=== PATIENT | male | born 1960 | race Two or more races ===

== ENCOUNTER 2022-12-09 11:09 | Inpatient (IN) | payer MEDICAID, OTHER ==
[~2022-12-09] VITALS: Ht 165.1 cm; Wt 77.3 kg
[2022-12-09] MEDS ORDERED: NITROGLYCERIN 0.4 MG SL TAB SL ONE (11:15)
[2022-12-09] MEDS ORDERED: ASPirin 325 MG TAB PO ONE (11:15)
[2022-12-09 12:13] LABS: Basophils # (auto) 0 10 ^3/uL (0-0.2); Basophils % (auto) 0.5 % (0.0-2.0); Eosinophils # (auto) 0.1 10 ^3/uL (0-0.8); Eosinophils % (auto) 1.7 % (0.0-7.0); Hematocrit 39.7 % (41.0-53.0); Hemoglobin 12.4 g/dL (13.5-17.5); Lymphocytes # (auto) 1.5 10 ^3/uL (0.4-5.4); Lymphocytes % (auto) 28.5 % (10.0-50.0); Mean Corpuscular Hgb Conc. 31.2 g/dL (32.0-36.0); Mean Corpuscular Volume 86.8 fL (80.0-100.0); Monocytes # (auto) 0.6 10 ^3/uL (0-1.3); Monocytes % (auto) 11.1 % (0.0-12.0); Neutrophils % (auto) 58.2 % (37.0-80.0); Red Blood Cells 4.58 10^6/uL (4.5-5.90); Red Cell Distribution Width 15.9 % (11.8-14.3); White Blood Cell 5.2 10^3/uL (4.4-10.8)
[2022-12-09 12:34] LABS: INR 0.95 (0.9-1.15); Partial Thromboplastin Time 27.2 sec (24.6-33.4)
[2022-12-09 14:28] LABS: Albumin 3.7 g/dL (3.4-5.0); BUN/Creatinine Ratio 16.8; Bilirubin, Total 0.7 mg/dL (0.2-1.0); Calcium 8.4 mg/dL (8.5-10.1); Potassium 4.7 mmol/L (3.5-5.1); Total Protein 6.7 g/dL (6.4-8.2)
[2022-12-09] MEDS ORDERED: DEXTROSE (50%) 50ML SYRG IV PRN (15:30)
[2022-12-09] MEDS ORDERED: NITROGLYCERIN 0.4 MG SL TAB SL PRN (15:30)
[2022-12-09] MEDS ORDERED: ENOXAPARIN SOD 30 MG/0.3 ML SYRINGE IV ONE (15:30)
[2022-12-09] MEDS ORDERED: HYDROcodone-ACET 10/325MG TAB PO ONE (16:15)
[2022-12-09] MEDS: InsuLIN REG 1unit/0.01ml Soln (100units/ml) SC SCH ×2 (17:46→23:20)
[2022-12-09] MEDS: ACCU-CHEK COMFORT CURVE STRIP VI SCH ×2 (17:47→23:15)
[2022-12-09] MEDS: ONDANSETRON HCL 4 MG/2 ML VIAL IV PRN (20:42)
[2022-12-09] MEDS: MORPHINE SULFATE 4 MG/ML SYR/VIAL IV PRN (20:45)
[2022-12-09] MEDS: METOPROLOL TARTRATE 25 MG TAB PO SCH (23:20)
[2022-12-09] MEDS: ATORVASTATIN 20 MG TAB PO SCH (23:21)
[2022-12-10 02:06] LABS: Urine Bacteria NONE SEEN /hpf (None Seen); Urine Blood Negative /uL (Negative); Urine Hyaline Cast FEW /lpf (0 - 2); Urine Specific Gravity 1.025 (1.001-1.035); Urine WBC <1 /hpf (0 - 3)
[2022-12-10 06:12] LABS: Basophils # (auto) 0 10 ^3/uL (0-0.2); Basophils % (auto) 0.5 % (0.0-2.0); Eosinophils # (auto) 0.1 10 ^3/uL (0-0.8); Eosinophils % (auto) 2.3 % (0.0-7.0); Hematocrit 38.1 % (41.0-53.0); Hemoglobin 12.1 g/dL (13.5-17.5); Lymphocytes # (auto) 1.4 10 ^3/uL (0.4-5.4); Lymphocytes % (auto) 34.9 % (10.0-50.0); Mean Corpuscular Hemoglobin 27.5 pg (28.0-32.0); Mean Corpuscular Hgb Conc. 31.8 g/dL (32.0-36.0); Mean Corpuscular Volume 86.4 fL (80.0-100.0); Monocytes # (auto) 0.5 10 ^3/uL (0-1.3); Monocytes % (auto) 13.2 % (0.0-12.0); Neutrophils # (auto) 1.9 10 ^3/uL (1.6-8.6); Neutrophils % (auto) 49.1 % (37.0-80.0); Nucleated Red Blood Cells % 0.1 %; Red Blood Cells 4.41 10^6/uL (4.5-5.90); Red Cell Distribution Width 16.1 % (11.8-14.3); White Blood Cell 3.9 10^3/uL (4.4-10.8)
[2022-12-10 06:29] LABS: Albumin 3.3 g/dL (3.4-5.0); Potassium 4.2 mmol/L (3.5-5.1)
[2022-12-10 06:37] LABS: BUN/Creatinine Ratio 17.1; Bilirubin, Total 0.8 mg/dL (0.2-1.0); Calcium 8.2 mg/dL (8.5-10.1); Total Protein 6.2 g/dL (6.4-8.2)
[2022-12-10] MEDS: ACCU-CHEK COMFORT CURVE STRIP VI SCH ×4 (06:56→22:33)
[2022-12-10] MEDS: InsuLIN REG 1unit/0.01ml Soln (100units/ml) SC SCH ×4 (06:58→22:00)
[2022-12-10] MEDS: ONDANSETRON HCL 4 MG/2 ML VIAL IV PRN (07:01)
[2022-12-10] MEDS: MORPHINE SULFATE 4 MG/ML SYR/VIAL IV PRN (07:01)
[2022-12-10] MEDS: METOPROLOL TARTRATE 25 MG TAB PO SCH ×2 (08:51→22:00)
[2022-12-10] MEDS: ASPirin 81 mg TAB PO SCH (08:51)
[2022-12-10] MEDS ORDERED: HYDROcodone-ACET 10/325MG TAB PO PRN (12:30)
[2022-12-10 13:06] VITALS: BP 123/63
[2022-12-10 18:25] VITALS: BP 109/60
[2022-12-10 22:00] VITALS: BP 121/60
[2022-12-10] MEDS: ATORVASTATIN 20 MG TAB PO SCH (22:32)
[2022-12-11 05:00] VITALS: BP 98/49
[2022-12-11] MEDS: InsuLIN REG 1unit/0.01ml Soln (100units/ml) SC SCH ×2 (05:32→11:30)
[2022-12-11] MEDS: ACCU-CHEK COMFORT CURVE STRIP VI SCH ×2 (05:33→11:40)
[2022-12-11 09:32] VITALS: BP 140/63
[2022-12-11] MEDS: METOPROLOL TARTRATE 25 MG TAB PO SCH (09:56)
[2022-12-11] MEDS: ASPirin 81 mg TAB PO SCH (09:56)
[2022-12-11 12:57] VITALS: BP 133/63
[2022-12-11 14:11] VITALS: BP 133/63
== END 2022-12-11 18:30 | disposition home or self-care (01) | DRG 198 ==
LOC: EDBD 11:09 → ER 11:09 → TELE 15:34 → TELE-WESTW 12-10 18:00
PROVIDERS: ADMIT Nurse Practitioner Family; ATTEND Family Medicine
DX: I24.9 Acute ischemic heart disease, unspecified (principal); E11.9 Type 2 diabetes mellitus without complications; E78.5 Hyperlipidemia, unspecified; I10 Essential (primary) hypertension; E78.00 Pure hypercholesterolemia, unspecified; Z20.822 Contact with and (suspected) exposure to COVID-19; I25.10 Atherosclerotic heart disease of native coronary artery without angina pectoris; I25.2 Old myocardial infarction; Z59.01 Sheltered homelessness
CPT/HCPCS: 36415; 71045; 80053; 80061; 81001; 82962; 83735; 84484; 85025; 85379; 85610; 85730; 87426; 93005; 93306; 96374; 96375; G0378; J1815; J2405

== ENCOUNTER 2023-11-10 11:50 | Inpatient (IN) | payer MEDICAID ==
[~2023-11-10] VITALS: Ht 172.7 cm; Wt 92.9 kg
[2023-11-10] MEDS ORDERED: NITROGLYCERIN 0.4 MG SL TAB SL ONE (12:30)
[2023-11-10 13:01] VITALS: RESP 22; O2SAT 95
[2023-11-10 13:01] LABS: Basophils # (auto) 0 10 ^3/uL (0-0.2); Basophils % (auto) 0.2 % (0.0-2.0); Eosinophils # (auto) 0 10 ^3/uL (0-0.8); Eosinophils % (auto) 0.3 % (0.0-7.0); Hematocrit 43.9 % (41.0-53.0); Hemoglobin 14.1 g/dL (13.5-17.5); Lymphocytes # (auto) 1.2 10 ^3/uL (0.4-5.4); Lymphocytes % (auto) 13.7 % (10.0-50.0); Mean Corpuscular Hemoglobin 28.5 pg (28.0-32.0); Mean Corpuscular Hgb Conc. 32.2 g/dL (32.0-36.0); Mean Corpuscular Volume 88.6 fL (80.0-100.0); Monocytes # (auto) 0.7 10 ^3/uL (0-1.3); Monocytes % (auto) 7.7 % (0.0-12.0); Neutrophils % (auto) 78.1 % (37.0-80.0); Red Blood Cells 4.96 10^6/uL (4.5-5.90); Red Cell Distribution Width 14.9 % (11.8-14.3)
[2023-11-10 13:22] LABS: Alanine Aminotransferase 33 U/L (7-40); Albumin 4.3 g/dL (3.2-4.8); Alkaline Phosphatase 86 U/L (46-116); Anion Gap 11 (5-15); Aspartate Aminotransferase 26 U/L (13-40); BUN/Creatinine Ratio 8.2 (10.0-20.0); Blood Urea Nitrogen 12 mg/dL (9-23); Calcium 8.9 mg/dL (8.7-10.4); Carbon Dioxide 22 mmol/L (20-30); Chloride 108 mmol/L (98-107); Creatine Kinase IFCC 200 U/L (46-171); Glucose 114 mg/dL (74-106); Magnesium 1.7 mg/dL (1.6-2.6); Potassium 3.1 mmol/L (3.5-5.1); Sodium 141 mmol/L (136-145)
[2023-11-10 13:23] LABS: Bilirubin, Total 1.3 mg/dL (0.2-1.0); Total Protein 7.1 g/dL (5.7-8.2)
[2023-11-10 13:36] LABS: Urine Epithelial Cast None Seen /hpf (<5)
[2023-11-10 13:38] LABS: Lactic Acid w/Reflex 2.6 mmol/L (0.4-2.0)
[2023-11-10 13:51] LABS: Urine Bacteria NONE SEEN /hpf (None Seen); Urine Blood Negative /uL (Negative); Urine Clarity Clear (Clear); Urine Hyaline Cast FEW /lpf (0 - 2); Urine Protein, UAD 1+ (Negative); Urine Specific Gravity 1.013 (1.001-1.035); Urine Urobilinogen Normal (Negative); Urine WBC 1 /hpf (0 - 3); Urine pH 6.5 (5.0-8.0)
[2023-11-10 13:57] LABS: Urine Color Straw (Yellow)
[2023-11-10 14:05] LABS: Amphetamine Screen, Urine Pos (NEGATIVE); Barbiturate Scree,Urine Neg (NEGATIVE); Benzodiazephine Screen, Urine Neg (NEGATIVE)
[2023-11-10 14:06] LABS: Cocaine Screen, Urine Neg (NEGATIVE); Opiate Scree,Urine Neg (NEGATIVE)
[2023-11-10 14:07] LABS: Cannabinoid Screen, Urine Neg (NEGATIVE); Phencyclidine Screen, Urine Neg (NEGATIVE)
[2023-11-10] MEDS ORDERED: IOHEXOL 350 MG/ML 100ML IJ ONE (14:09)
[2023-11-10] MEDS ORDERED: SODIUM CHLORIDE 0.9% 500 ML IV ONE (14:15)
[2023-11-10] MEDS ORDERED: FUROSEMIDE 20 MG/2 ML VIAL IV ONE (14:15)
[2023-11-10] MEDS ORDERED: DOCUSATE SOD 100 MG CAP PO PRN (16:45)
[2023-11-10] MEDS ORDERED: ACETAMINOPHEN 325 MG TAB PO PRN (16:45)
[2023-11-10] MEDS ORDERED: NITROGLYCERIN 0.4 MG SL TAB SL PRN (16:45)
[2023-11-10] MEDS ORDERED: MORPHINE SULFATE INJ 2 MG/ml SYRG IV PRN (16:45)
[2023-11-10] MEDS ORDERED: ONDANSETRON HCL 4 MG/2 ML VIAL IV PRN (16:45)
[2023-11-10] MEDS: FUROSEMIDE 20 MG/2 ML VIAL IV SCH (18:00)
[2023-11-10] MEDS ORDERED: ATOR40TA52 PO (18:06)
[2023-11-10] MEDS ORDERED: ROPI0.254 PO (18:06)
[2023-11-10] MEDS ORDERED: GAB100C PO (18:06)
[2023-11-10] MEDS ORDERED: PANT40T PO (18:06)
[2023-11-10] MEDS ORDERED: POTASSIUM CHL 20 Meq TABLET PO ONE (18:15)
[2023-11-10] MEDS: Ropinirole Hydrochloride (Ropinirole Hcl) 0.25 MG TABLETS PO SCH (19:48)
[2023-11-10 19:55] VITALS: RESP 18; O2SAT 97
[2023-11-10] MEDS: ATORVASTATIN 20 MG TAB PO SCH (21:54)
[2023-11-10] MEDS: GABAPENTIN 100 MG CAP PO SCH (21:54)
[2023-11-11 06:13] LABS: Basophils # (auto) 0 10 ^3/uL (0-0.2); Basophils % (auto) 0.6 % (0.0-2.0); Eosinophils # (auto) 0.1 10 ^3/uL (0-0.8); Hematocrit 42.5 % (41.0-53.0); Hemoglobin 13.6 g/dL (13.5-17.5); Lymphocytes # (auto) 1.5 10 ^3/uL (0.4-5.4); Lymphocytes % (auto) 26.4 % (10.0-50.0); Mean Corpuscular Hemoglobin 28.7 pg (28.0-32.0); Mean Corpuscular Volume 89.7 fL (80.0-100.0); Monocytes # (auto) 0.6 10 ^3/uL (0-1.3); Monocytes % (auto) 10.1 % (0.0-12.0); Neutrophils # (auto) 3.5 10 ^3/uL (1.6-8.6); Neutrophils % (auto) 60.9 % (37.0-80.0); Nucleated Red Blood Cells % 0.1 %; Red Blood Cells 4.73 10^6/uL (4.5-5.90); White Blood Cell 5.7 10^3/uL (4.4-10.8)
[2023-11-11] MEDS: PANTOPRAZOLE 40 MG TAB PO SCH (06:33)
[2023-11-11] MEDS: FUROSEMIDE 20 MG/2 ML VIAL IV SCH (06:33)
[2023-11-11 06:47] LABS: Alanine Aminotransferase 30 U/L (7-40); Albumin 3.8 g/dL (3.2-4.8); Alkaline Phosphatase 78 U/L (46-116); Anion Gap 7 (5-15); Aspartate Aminotransferase 23 U/L (13-40); BUN/Creatinine Ratio 7.1 (10.0-20.0); Bilirubin, Total 0.9 mg/dL (0.2-1.0); Blood Urea Nitrogen 11 mg/dL (9-23); Calcium 8.4 mg/dL (8.7-10.4); Carbon Dioxide 24 mmol/L (20-30); Chloride 110 mmol/L (98-107); Glucose 105 mg/dL (74-106); Sodium 141 mmol/L (136-145); Total Protein 6.4 g/dL (5.7-8.2)
[2023-11-11 09:18] VITALS: BP 115/74; PULSE 18; PULSE 78; RESP 16; RESP 78; TEMP 98.6; O2SAT 98
[2023-11-11] MEDS ORDERED: OPTISON 3ml Vial for INJ IV ONE (10:15)
[2023-11-11] MEDS: ENOXAPARIN SOD 40 MG/0.4 ML SYRINGE SC SCH (10:40)
[2023-11-11 13:00] VITALS: BP 128/85; PULSE 82; RESP 19; TEMP 98.6; O2SAT 93
[2023-11-11] MEDS ORDERED: MAGN400T40 PO (15:42)
[2023-11-11] MEDS ORDERED: NAP500T PO (15:42)
[2023-11-11 17:00] VITALS: BP 95/57; PULSE 71; RESP 18; TEMP 97.9; O2SAT 97
[2023-11-11] MEDS: FUROSEMIDE 40 MG/4 ML VIAL IV SCH (18:20)
[2023-11-11 20:00] VITALS: PULSE 70
[2023-11-11] MEDS: ATORVASTATIN 20 MG TAB PO SCH (21:32)
[2023-11-11] MEDS: GABAPENTIN 100 MG CAP PO SCH (21:32)
[2023-11-11 22:00] VITALS: BP 109/72; PULSE 74; RESP 17; TEMP 97.8; O2SAT 97
[2023-11-11] MEDS: Ropinirole Hydrochloride (Ropinirole Hcl) 0.25 MG TABLETS PO SCH (22:00)
[2023-11-12] VITALS (7 sets, daily range): BP systolic 98–126; BP diastolic 67–78; PULSE 60–108; RESP 17–20; TEMP 97.5–98.5; O2SAT 92–99
[2023-11-12] MEDS: FUROSEMIDE 40 MG/4 ML VIAL IV SCH ×2 (05:58→17:05)
[2023-11-12] MEDS: PANTOPRAZOLE 40 MG TAB PO SCH (06:46)
[2023-11-12] MEDS: ENOXAPARIN SOD 40 MG/0.4 ML SYRINGE SC SCH (10:08)
[2023-11-12] MEDS: Ropinirole Hydrochloride (Ropinirole Hcl) 0.25 MG TABLETS PO SCH (22:00)
[2023-11-12] MEDS: ATORVASTATIN 20 MG TAB PO SCH (22:01)
[2023-11-12] MEDS: GABAPENTIN 100 MG CAP PO SCH (22:01)
[2023-11-13] VITALS (7 sets, daily range): BP systolic 104–132; BP diastolic 65–75; PULSE 61–79; RESP 17–18; TEMP 98–98.8; O2SAT 95–100
[2023-11-13] MEDS: PANTOPRAZOLE 40 MG TAB PO SCH (06:48)
[2023-11-13] MEDS: FUROSEMIDE 40 MG/4 ML VIAL IV SCH ×3 (06:48→18:38)
[2023-11-13] MEDS: ENOXAPARIN SOD 40 MG/0.4 ML SYRINGE SC SCH (10:30)
[2023-11-13] MEDS: HYDROcodone-ACET 5/325MG TAB PO PRN (18:41)
[2023-11-13] MEDS: GABAPENTIN 100 MG CAP PO SCH (21:33)
[2023-11-13] MEDS: ATORVASTATIN 20 MG TAB PO SCH (21:33)
[2023-11-13] MEDS: Ropinirole Hydrochloride (Ropinirole Hcl) 0.25 MG TABLETS PO SCH (22:00)
[2023-11-14] VITALS (8 sets, daily range): BP systolic 103–117; BP diastolic 46–78; PULSE 60–129; RESP 16–22; TEMP 36.9; O2SAT 92–100
[2023-11-14] MEDS: FUROSEMIDE 40 MG/4 ML VIAL IV SCH ×2 (06:00→18:00)
[2023-11-14] MEDS: PANTOPRAZOLE 40 MG TAB PO SCH (06:09)
[2023-11-14] MEDS: ENOXAPARIN SOD 40 MG/0.4 ML SYRINGE SC SCH (10:14)
[2023-11-14] MEDS ORDERED: FURO1TAB31 PO (16:25)
[2023-11-14] MEDS ORDERED: MAGN400T40 PO (16:25)
[2023-11-14] MEDS ORDERED: ATOR20TA50 PO (16:25)
[2023-11-14] MEDS ORDERED: GAB100C PO (16:25)
[2023-11-14] MEDS: GABAPENTIN 100 MG CAP PO SCH (21:49)
[2023-11-14] MEDS: ATORVASTATIN 20 MG TAB PO SCH (21:50)
[2023-11-14] MEDS: Ropinirole Hydrochloride (Ropinirole Hcl) 0.25 MG TABLETS PO SCH (22:00)
[2023-11-15 05:00] VITALS: BP 112/71; PULSE 66; RESP 20; TEMP 98; O2SAT 97
[2023-11-15] MEDS: FUROSEMIDE 40 MG/4 ML VIAL IV SCH (05:50)
[2023-11-15] MEDS: HYDROcodone-ACET 5/325MG TAB PO PRN (06:20)
[2023-11-15] MEDS: PANTOPRAZOLE 40 MG TAB PO SCH (06:40)
[2023-11-15 08:00] VITALS: PULSE 60
[2023-11-15 08:30] VITALS: RESP 18; O2SAT 95
== END 2023-11-15 09:00 | disposition home or self-care (01) | DRG 194 ==
LOC: ER 11:50 → EDBD 11:50 → TELE 16:37 → TELE-WESTW 11-11 08:54
PROVIDERS: ADMIT Nurse Practitioner Acute Care; ATTEND Nurse Practitioner Acute Care
DX: I11.0 Hypertensive heart disease with heart failure (principal); J96.01 Acute respiratory failure with hypoxia; I21.A1 Myocardial infarction type 2; I50.43 Acute on chronic combined systolic (congestive) and diastolic (congestive) heart failure; F15.10 Other stimulant abuse, uncomplicated; E78.5 Hyperlipidemia, unspecified; E11.9 Type 2 diabetes mellitus without complications; Z95.0 Presence of cardiac pacemaker
CPT/HCPCS: 36415; 71045; 71275; 80053; 80307; 81001; 82550; 83605; 83735; 83880; 84484; 85025; 85379; 87081; 93005; 93306; 96361; 96374; 99291; G0378; Q9956

== ENCOUNTER 2024-04-25 12:32 | Inpatient (IN) | payer MEDICAID ==
[~2024-04-25] VITALS: Ht 167.6 cm; Wt 97.1 kg
[~2024-04-25 12:32] MED LIST: ATOR20TA50 PO; FURO1TAB31 PO; GAB100C PO; MAGN400T40 PO; NAP500T PO; PANT40T PO; ROPI5TAB20 PO
[2024-04-25] MEDS: SODIUM CHLORIDE 0.9% 1,000 ML IV ONE (13:00)
[2024-04-25 13:54] LABS: Chloride 111 mmol/L (98-107); Sodium 143 mmol/L (136-145)
[2024-04-25 13:55] LABS: Anion Gap 5 (5-15); Carbon Dioxide 27 mmol/L (20-30)
[2024-04-25 14:00] LABS: Blood Urea Nitrogen 18 mg/dL (9-23); Glucose 61 mg/dL (74-106)
[2024-04-25 14:46] LABS: Basophils # (auto) 0 10 ^3/uL (0-0.2); Basophils % (auto) 0.5 % (0.0-2.0); Eosinophils # (auto) 0.3 10 ^3/uL (0-0.8); Eosinophils % (auto) 4.3 % (0.0-7.0); Hematocrit 43.3 % (41.0-53.0); Hemoglobin 13.9 g/dL (13.5-17.5); Lymphocytes # (auto) 0.9 10 ^3/uL (0.4-5.4); Lymphocytes % (auto) 15.4 % (10.0-50.0); Mean Corpuscular Hemoglobin 27.9 pg (28.0-32.0); Mean Corpuscular Hgb Conc. 32.1 g/dL (32.0-36.0); Monocytes # (auto) 0.5 10 ^3/uL (0-1.3); Monocytes % (auto) 8.3 % (0.0-12.0); Neutrophils # (auto) 4.2 10 ^3/uL (1.6-8.6); Neutrophils % (auto) 71.5 % (37.0-80.0); Nucleated Red Blood Cells % 0.1 %; Red Blood Cells 4.98 10^6/uL (4.5-5.90); Red Cell Distribution Width 16.8 % (11.8-14.3); White Blood Cell 5.9 10^3/uL (4.4-10.8)
[2024-04-25] MEDS: PIPERACILLIN-TAZOB 3.375GM 100 ML IV ONE (17:00)
[2024-04-25] MEDS ORDERED: ONDANSETRON HCL 4 MG/2 ML VIAL IV PRN (17:45)
[2024-04-25] MEDS ORDERED: MORPHINE SULFATE INJ 2 MG/ml SYRG IV PRN (17:45)
[2024-04-25] MEDS ORDERED: ACETAMINOPHEN 325 MG TAB PO PRN (17:45)
[2024-04-25] MEDS ORDERED: DOCUSATE SOD 100 MG CAP PO PRN (17:45)
[2024-04-25] MEDS ORDERED: NITROGLYCERIN 0.4 MG SL TAB SL PRN (17:45)
[2024-04-25] MEDS ORDERED: ATOR40TA52 PO (18:46)
[2024-04-25] MEDS ORDERED: LOS25T PO (18:46)
[2024-04-25 20:00] VITALS: PULSE 90; RESP 13; O2SAT 99
[2024-04-25] MEDS: ceFAZolin 1GM/50ML 50 ML IV SCH (20:05)
[2024-04-25] MEDS: HYDROcodone-ACET 5/325MG TAB PO PRN (20:16)
[2024-04-25] MEDS: ATORVASTATIN 20 MG TAB PO SCH (22:00)
[2024-04-25 23:44] VITALS: BP 126/82; PULSE 70; RESP 16; TEMP 98.3; O2SAT 95
[2024-04-26] VITALS (8 sets, daily range): BP systolic 118–145; BP diastolic 64–89; PULSE 60–80; RESP 16–22; TEMP 97.7–98.6; O2SAT 94–100
[2024-04-26] MEDS: MORPHINE SULFATE INJ 2 MG/ml SYRG IV PRN (00:07)
[2024-04-26 06:47] LABS: Basophils # (auto) 0 10 ^3/uL (0-0.2); Basophils % (auto) 0.7 % (0.0-2.0); Eosinophils # (auto) 0.2 10 ^3/uL (0-0.8); Hematocrit 39.1 % (41.0-53.0); Hemoglobin 12.7 g/dL (13.5-17.5); Lymphocytes # (auto) 1.1 10 ^3/uL (0.4-5.4); Lymphocytes % (auto) 25.8 % (10.0-50.0); Mean Corpuscular Hemoglobin 28.2 pg (28.0-32.0); Mean Corpuscular Hgb Conc. 32.4 g/dL (32.0-36.0); Monocytes # (auto) 0.3 10 ^3/uL (0-1.3); Neutrophils # (auto) 2.6 10 ^3/uL (1.6-8.6); Neutrophils % (auto) 60.5 % (37.0-80.0); Nucleated Red Blood Cells % 0.1 %; Red Blood Cells 4.49 10^6/uL (4.5-5.90); Red Cell Distribution Width 16.8 % (11.8-14.3); White Blood Cell 4.3 10^3/uL (4.4-10.8)
[2024-04-26 07:12] LABS: Alanine Aminotransferase 19 U/L (7-40); Albumin 3.3 g/dL (3.2-4.8); Alkaline Phosphatase 75 U/L (46-116); Anion Gap 1 (5-15); Aspartate Aminotransferase 12 U/L (13-40); BUN/Creatinine Ratio 11.5 (10.0-20.0); Bilirubin, Total 0.4 mg/dL (0.2-1.0); Blood Urea Nitrogen 15 mg/dL (9-23); Calcium 8.4 mg/dL (8.5-10.1); Carbon Dioxide 29 mmol/L (20-30); Chloride 113 mmol/L (98-107); Glucose 108 mg/dL (74-106); Potassium 3.7 mmol/L (3.5-5.1); Sodium 143 mmol/L (136-145); Total Protein 5.6 g/dL (5.7-8.2)
[2024-04-26] MEDS: ENOXAPARIN SOD 40 MG/0.4 ML SYRINGE SC SCH (10:49)
[2024-04-26] MEDS: FUROSEMIDE 20 MG/2 ML VIAL IV SCH (10:49)
[2024-04-26] MEDS: LOSARTAN POTASSIUM 25 MG TAB PO SCH (10:49)
[2024-04-26 11:11] LABS: Magnesium 1.9 mg/dL (1.6-2.6)
[2024-04-26 11:12] LABS: CRP High Sensitivity 0.72 mg/dL (<1.0)
[2024-04-26 11:35] LABS: Erythrocyte Sedimentation Rate 4 mm/hr (0-20)
[2024-04-27] VITALS (7 sets, daily range): BP systolic 125–147; BP diastolic 55–84; PULSE 60–68; RESP 16–20; TEMP 36.6; O2SAT 94–97
[2024-04-27 06:53] LABS: Alanine Aminotransferase 17 U/L (7-40); Albumin 3.4 g/dL (3.2-4.8); Alkaline Phosphatase 74 U/L (46-116); Anion Gap 5 (5-15); Aspartate Aminotransferase 14 U/L (13-40); Blood Urea Nitrogen 14 mg/dL (9-23); Calcium 8.6 mg/dL (8.5-10.1); Carbon Dioxide 26 mmol/L (20-30); Chloride 110 mmol/L (98-107); Glucose 94 mg/dL (74-106); Magnesium 1.9 mg/dL (1.6-2.6); Potassium 3.7 mmol/L (3.5-5.1); Sodium 141 mmol/L (136-145)
[2024-04-27 06:54] LABS: Bilirubin, Total 0.5 mg/dL (0.2-1.0); Total Protein 5.8 g/dL (5.7-8.2)
[2024-04-27 07:20] LABS: Basophils # (auto) 0 10 ^3/uL (0-0.2); Basophils % (auto) 0.7 % (0.0-2.0); Eosinophils # (auto) 0.2 10 ^3/uL (0-0.8); Eosinophils % (auto) 4.1 % (0.0-7.0); Hematocrit 40.8 % (41.0-53.0); Hemoglobin 13.2 g/dL (13.5-17.5); Lymphocytes # (auto) 1.3 10 ^3/uL (0.4-5.4); Lymphocytes % (auto) 26.6 % (10.0-50.0); Mean Corpuscular Hemoglobin 27.9 pg (28.0-32.0); Mean Corpuscular Hgb Conc. 32.3 g/dL (32.0-36.0); Mean Corpuscular Volume 86.5 fL (80.0-100.0); Monocytes # (auto) 0.4 10 ^3/uL (0-1.3); Monocytes % (auto) 9.2 % (0.0-12.0); Neutrophils # (auto) 2.8 10 ^3/uL (1.6-8.6); Neutrophils % (auto) 59.4 % (37.0-80.0); Red Blood Cells 4.72 10^6/uL (4.5-5.90); Red Cell Distribution Width 16.9 % (11.8-14.3); White Blood Cell 4.8 10^3/uL (4.4-10.8)
[2024-04-27] MEDS ORDERED: AUG875T PO (13:00)
[2024-04-27] MEDS ORDERED: ACET-1882 PO (13:00)
== END 2024-04-27 18:07 | disposition home or self-care (01) | DRG 383 ==
LOC: EDBD 12:32 → ER 12:32 → OVERFLOW 17:45 → WEST WING 23:48
PROVIDERS: ADMIT Internal Medicine Pulmonary Disease; ATTEND Internal Medicine Pulmonary Disease
DX: L03.115 Cellulitis of right lower limb (principal); I50.9 Heart failure, unspecified; E11.621 Type 2 diabetes mellitus with foot ulcer; L97.519 Non-pressure chronic ulcer of other part of right foot with unspecified severity; I11.0 Hypertensive heart disease with heart failure; E78.5 Hyperlipidemia, unspecified; F15.10 Other stimulant abuse, uncomplicated; E66.9 Obesity, unspecified; Z95.0 Presence of cardiac pacemaker; Z68.34 Body mass index [BMI] 34.0-34.9, adult; Z79.4 Long term (current) use of insulin; Z79.899 Other long term (current) drug therapy
CPT/HCPCS: 36415; 80048; 80053; 80061; 83605; 83735; 83880; 84443; 85025; 85652; 86141; 87040; 87205; 93971; G0378; J2543

== ENCOUNTER 2024-10-18 22:51 | Emergency (ER) | payer MEDICAID ==
[~2024-10-18] VITALS: Ht 162.6 cm; Wt 81.7 kg
[~2024-10-18 22:51] MED LIST changes: +ACET-1882 PO; -ATOR20TA50 PO; +ATOR40TA52 PO; +AUG875T PO; -FURO1TAB31 PO; +LOS25T PO; -NAP500T PO
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
[2024-10-19 00:09] LABS: Basophils # (auto) 0 10 ^3/uL (0-0.2); Basophils % (auto) 0.3 % (0.0-2.0); Eosinophils # (auto) 0.1 10 ^3/uL (0-0.8); Eosinophils % (auto) 0.5 % (0.0-7.0); Hematocrit 44.2 % (41.0-53.0); Hemoglobin 14.4 g/dL (13.5-17.5); Lymphocytes # (auto) 1.2 10 ^3/uL (0.4-5.4); Lymphocytes % (auto) 10.6 % (10.0-50.0); Mean Corpuscular Hemoglobin 29.2 pg (28.0-32.0); Mean Corpuscular Hgb Conc. 32.6 g/dL (32.0-36.0); Mean Corpuscular Volume 89.5 fL (80.0-100.0); Monocytes # (auto) 1.1 10 ^3/uL (0-1.3); Monocytes % (auto) 9.3 % (0.0-12.0); Neutrophils % (auto) 79.3 % (37.0-80.0); Platelet Count (auto) 236 10^3/uL (140-450); Red Blood Cells 4.94 10^6/uL (4.5-5.90); Red Cell Distribution Width 16.8 % (11.8-14.3); White Blood Cell 11.3 10^3/uL (4.4-10.8)
[2024-10-19 00:23] LABS: INR 0.98 (0.9-1.15); Partial Thromboplastin Time 25.7 SEC (24.5-34.5); Prothrombin Time 10.4 sec (9.3-11.8)
[2024-10-19 00:26] LABS: Alanine Aminotransferase 18 U/L (7-40); Albumin 4.7 g/dL (3.2-4.8); Alkaline Phosphatase 77 U/L (46-116); Anion Gap 10 (5-15); Aspartate Aminotransferase 17 U/L (13-40); BUN/Creatinine Ratio 11.9 (10.0-20.0); Blood Urea Nitrogen 19 mg/dL (9-23); Calcium 10.2 mg/dL (8.7-10.4); Carbon Dioxide 29 mmol/L (20-31); Chloride 105 mmol/L (98-107); Magnesium 2.2 mg/dL (1.6-2.6); Sodium 144 mmol/L (136-145)
[2024-10-19 00:27] LABS: Bilirubin, Total 0.7 mg/dL (0.2-1.0); Total Protein 7.7 g/dL (5.7-8.2)
[2024-10-19 00:29] LABS: Glucose 114 mg/dL (74-106); Potassium 3.5 mmol/L (3.5-5.1)
--- NOTE | 2024-10-19 00:38 | DVH ---
EXAM: XY CHEST PORTABLE CLINICAL HISTORY: cp TECHNIQUE: Single AP view of the chest WID: COMPARISON: XY CHEST PORTABLE on DOS: 11/10/23, FINDINGS: Lines and tubes: Left-sided dual lead pacemaker in place. Chest: The heart size and pulmonary vasculature is within normal limits. Calcified plaque projects over the aortic arch No pleural effusion, pneumothorax, or consolidation. The osseous structures are grossly intact. Multilevel thoracic spondylosis. IMPRESSION: No acute cardiopulmonary abnormality.
[2024-10-19 02:52] VITALS: PULSE 82; RESP 16; O2SAT 97
[2024-10-19] MEDS: MORPHINE SULFATE 4 MG/ML SYR/VIAL IV ONE (02:58)
[2024-10-19] MEDS: ACETAMINOPHEN 325 MG TAB PO ONE (02:59)
[2024-10-19] MEDS: ASPirin 81 mg TAB PO ONE (02:59)
--- NOTE | 2024-10-19 03:44 | ECG ---
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
[2024-10-19 03:54] VITALS: BP 113/70; PULSE 65; RESP 14
[2024-10-19 03:55] VITALS: TEMP 98.9
--- NOTE | 2024-10-19 06:40 | ECG ---
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
--- NOTE | 2024-10-19 12:55 | ECG ---
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
== END 2024-10-19 04:13 | disposition home or self-care (01) ==
LOC: EDBD 22:51 → ER 22:51
DX: R07.89 Other chest pain (principal); M25.561 Pain in right knee; E11.9 Type 2 diabetes mellitus without complications; E78.5 Hyperlipidemia, unspecified; I10 Essential (primary) hypertension; I25.2 Old myocardial infarction; Z95.0 Presence of cardiac pacemaker; Z79.899 Other long term (current) drug therapy
CPT/HCPCS: 36415; 71045; 80053; 83735; 83880; 84484; 85025; 85610; 85730; 93005; 96374; 99285; J2270